=== PATIENT | male | born 1970 | race Two or more races ===

== ENCOUNTER 2020-08-06 07:10 | Day surgery (SDC) | payer OTHER | END 2020-08-06 13:10 | disposition home or self-care (01) | LOC: AMB-ENDOS 07:10 | PROVIDERS: ATTEND Colon & Rectal Surgery | DX: K62.89 Other specified diseases of anus and rectum (principal); K64.1 Second degree hemorrhoids; Z20.828 Contact with and (suspected) exposure to other viral communicable diseases; Z12.11 Encounter for screening for malignant neoplasm of colon ==

== ENCOUNTER 2023-02-06 15:34 | Inpatient (IN) | payer OTHER ==
[~2023-02-06] VITALS: Ht 170.2 cm; Wt 72.6 kg
== END 2023-02-09 11:13 | disposition home or self-care (01) | DRG 390 ==
LOC: ER 15:34 → SEC-K 02-07 14:29 → SURH 02-07 14:29
PROVIDERS: ADMIT Colon & Rectal Surgery; ATTEND Colon & Rectal Surgery
PROC: BW21ZZZ Computerized Tomography (CT Scan) of Abdomen and Pelvis (ICD-10-PCS; principal; 2023-02-07)
DX: K56.609 Unspecified intestinal obstruction, unspecified as to partial versus complete obstruction (principal); R10.9 Unspecified abdominal pain